=== PATIENT | male | born 1975 | race Two or more races ===

== ENCOUNTER 2016-09-10 14:27 | Emergency (ER) | payer SELFPAY ==
[~2016-09-10] VITALS: Ht 162.6 cm; Wt 68.0 kg
[2016-09-10 14:38] VITALS: BP 127/86
[2016-09-10 14:39] VITALS: BP 127/86
[2016-09-10] MEDS ORDERED: NORCO 5-325 TA1 EACH ORAL (15:54)
[2016-09-10] MEDS ORDERED: IBUPROFEN600 MG ORAL (15:54)
[2016-09-10 16:08] VITALS: BP 125/82
[2016-09-10 16:11] VITALS: BP 125/82
--- NOTE | 2016-09-10 19:00 | Emergency Room Report ---
History of Present Illness General Chief Complaint: Upper Extremity Injury Source: Patient Present Illness HPI Patient is a 41-year-old male who presented after increased there is pain as well as chest pain after fall from the roof. Injury occurred yesterday. The patient reported having sharp pain to his right wrist. This did not radiate. Patient denied other locations of pain. He reported having worsened chest pain with deep breath. He had not been vomiting or having abdominal pain. He denies any head injury. Allergies: Coded Allergies: PENICILLINS (Unverified Allergy, Unknown, 09/10/16) Uncoded Allergies: PENICILLIN (Allergy, Unknown, 09/10/16) Patient History Past Medical History: see triage record Reviewed Nursing Documentation: PMH: Agreed, PSxH: Agreed Nursing Documentation-PMH Past Medical History: No History, Except For Review of Systems All Other Systems: negative except mentioned in HPI Physical Exam Vital Signs Date Time Temp Pulse Resp B/P Pulse Ox O2 Delivery O2 Flow Rate FiO2 09/10/16 14:32 98.1 69 14 127/86 98 Room Air General Appearance: well appearing, no apparent distress, alert, GCS 15, non- toxic Head: normocephalic, atraumatic ENT: hearing grossly normal, normal voice Neck: full range of motion, supple Respiratory: no respiratory distress, speaking full sentences Cardiovascular #1: normal inspection, regular rate, rhythm Gastrointestinal: normal inspection, non tender, soft, no mass Musculoskeletal: no calf tenderness, inflammation, swelling - right wrist, hand Neurologic: normal inspection, alert, oriented x3, responsive, artificial 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 A CT of the chest with radiology showed nofracture or pneumothorax. X-ray imaging of the right hand 3 views interpreted by me showed degenerative changes with possible fifth metacarpal fracture. Patient was placed in a Colles' splint. He is advised followup with orthopedics in next few days. He is given prescription for ibuprofen.Patient is advised to return if any worsening condition or if any changes in status that are concerning. Last Vital Signs Date Time Temp Pulse Resp B/P Pulse Ox O2 Delivery O2 Flow Rate FiO2 09/10/16 16:11 98.0 71 16 125/82 98 Room Air Status: improved Disposition: HOME, SELF-CARE Condition: Stable Scripts Ibuprofen* (MOTRIN*) 600 Mg Tablet 600 MG ORAL Q8H Y for For Pain, #30 TAB 0 Refills Prov: Maurizio Damian 09/10/16 Hydrocodone Bit/Acetaminophen 5-325* (NORCO 5-325*) 1 Each Tablet 1 TAB ORAL Q6H Y for For Pain, #20 TAB 0 Refills Prov: Maurizio Damian 09/10/16 Patient Instructions: Metacarpal Fracture, [id number] Maurizio Damian Sep 10, 2016 19:00
--- NOTE | 2016-09-11 09:54 | Diagnostic Imaging Report ---
Indication: Chest pain Technique: Continuous helical transaxial imaging of the chest was obtained from the thoracic inlet to the upper abdomen. No intravenous contrast was administered. Coronal 2-D reformats were also obtained. Total Dose length Product (DLP): [address] Dose Index Volume (CTDIvol): 15 mGy Comparison: none Findings: The heart is unremarkable. There is a hiatal hernia. There is no adenopathy definitely seen although there are some small nodes present which may be normal. Lungs are clear. Visualized upper abdomen is unremarkable in appearance. Impression: No acute findings Hiatal hernia. The CT scanner at [facility] is accredited by the [employer] and the scans are performed using dose optimization techniques as appropriate to a performed exam including Automatic Exposure control.
--- NOTE | 2016-09-11 11:57 | Diagnostic Imaging Report ---
Indication: pain Findings: 3 views of the right hand were obtained. There is moderate to severe degenerative changes of the wrist characterized by joint space narrowing, irregular osteophytes and fairly marked deformity of the distal ulna, probably on the basis of old trauma. Intercarpal narrowing also noted in several locations. The distal radial ulnar joint appears distracted. 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
== END 2016-09-10 16:16 | disposition home or self-care (01) ==
LOC: EMR 15:08
DX: S60.211A Contusion of right wrist, initial encounter (principal); M19.031 Primary osteoarthritis, right wrist; S62.91XA Unspecified fracture of right hand, initial encounter for closed fracture; W17.89XA Other fall from one level to another, initial encounter; Y93.9 Activity, unspecified; Y92.9 Unspecified place or not applicable; Z88.0 Allergy status to penicillin; R07.9 Chest pain, unspecified; K44.9 Diaphragmatic hernia without obstruction or gangrene
CPT/HCPCS: 29260; 71250; 99284

== ENCOUNTER 2020-04-01 19:51 | Emergency (ER) | payer MEDICAID ==
[~2020-04-01] VITALS: Ht 160 cm; Wt 77.1 kg
[~2020-04-01 19:51] MED LIST: IBUPROFEN600 MG ORAL; NORCO 5-325 TA1 EACH ORAL
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
[2020-04-01] MEDS ORDERED: Methocarbamol 750mg tab ORAL ONE (20:30)
[2020-04-01] MEDS ORDERED: Ketorolac 30mg Inj IM ONE (20:30)
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
--- NOTE | 2020-04-01 21:25 | Diagnostic Imaging Report ---
EXAM: CT Cervical Spine Without Intravenous Contrast CLINICAL HISTORY: TRAUMA TECHNIQUE: Axial computed tomography images of the cervical spine without intravenous contrast. CTDI is 20.2 mGy and DLP is 571.9 mGy-cm. One or more of the following dose reduction techniques were used: automated exposure control, adjustment of the mA and/or kV according to patient size, use of iterative reconstruction technique. COMPARISON: No relevant prior studies available. FINDINGS: Vertebrae: Unremarkable. No acute fracture. Discs/spinal canal/neural foramina: No acute findings. No spinal canal stenosis. Soft tissues: Unremarkable. IMPRESSION: No acute abnormality.
[2020-04-01] MEDS ORDERED: LIDODERM700 M1 TOPIC (21:28)
[2020-04-01] MEDS ORDERED: ROBAXIN-500MG ORAL (21:28)
[2020-04-01] MEDS ORDERED: IBUPROFEN600 M1 ORAL (21:28)
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
[2020-04-01 21:30] VITALS: BP 139/77
--- NOTE | 2020-04-01 21:40 | NUR ---
ER DISCHARGE NOTE: Patient is cleared to be discharged per ERMD, pt is aox4, on room air, with stable vital signs. pt was given dc and prescription instructions, pt was able to verbalize understanding, pt id band removed without complications. pt is able to ambulate with steady gait. pt took all belongings.
[2020-04-01 21:45] VITALS: BP 139/77
== END 2020-04-01 21:45 | disposition home or self-care (01) ==
LOC: EMR 20:12
DX: S16.1XXA Strain of muscle, fascia and tendon at neck level, initial encounter (principal); S39.012A Strain of muscle, fascia and tendon of lower back, initial encounter; V43.52XA Car driver injured in collision with other type car in traffic accident, initial encounter; Y92.411 Interstate highway as the place of occurrence of the external cause; Z88.0 Allergy status to penicillin
CPT/HCPCS: 72125; 72131; 96372; J1885; Z7502; 99284